=== PATIENT | female | born 1945 | race Caucasian/White ===

== ENCOUNTER 2017-05-25 09:10 | Outpatient (CLI) | payer MEDICARE | END 2017-05-25 09:11 | disposition home or self-care (01) | LOC: CP 09:10 | PROVIDERS: ATTEND Internal Medicine Critical Care Medicine | DX: J43.8 Other emphysema (principal); J44.9 Chronic obstructive pulmonary disease, unspecified | CPT/HCPCS: 94060; 94727; 94729 ==

== ENCOUNTER 2018-07-16 11:01 | Observation (INO) | payer MEDICARE ==
[2018-07-16 11:49] LABS: #Basophils 0.1 thou/uL (0.0-0.2); #Eosinphils 0.1 thou/uL (0.0-0.7); #Lymphocytes 0.8 thou/uL (1.20-3.40); %Basophils 1.5 % (0.0-1.0); %Eosinophils 0.7 % (0.0-10.0); %Lymphocytes 8.8 % (21.0-51.0); Hemoglobin 14.9 g/dL (12.0-16.0); Mean Corpuscular Hemoglobin 31.3 pg (27.0-31.0); Mean Corpuscular Volume 97.7 fL (78.0-98.0); Mean Platelet Volume 7.7 fL (7.4-10.4); Platelet Count 257 thou/uL (130-400); RBC Distribution Width 12.3 % (11.5-14.5); Red Blood Cell (RBC) Count 4.77 mill/uL (4.20-5.40)
[2018-07-16 12:01] LABS: ALT (SGPT) 31 U/L (8-55); AST (SGOT) 30 U/L (5-34); Alkaline Phosphatase 84 U/L (40-150); Anion Gap 13 mmol/L (10-20); BUN (Urea Nitrogen) 12 mg/dL (9.8-20.1); Bilirubin, Total 0.8 mg/dL (0.2-1.2); CK (CPK) 172 U/L (29-168); Calc. Creatinine Clearance 0 mL/min (70-130); Calcium 9.4 mg/dL (7.8-10.44); Carbon Dioxide 21 mmol/L (23-31); Chloride 100 mmol/L (98-107); Estimated GFR-MDRD 83; Globulin 2.6 g/dL (2.4-3.5); Glucose 86 mg/dL (83-110); Potassium 4.4 mmol/L (3.5-5.1); Protein, Total 6.6 g/dL (6.0-8.3); Sodium 130 mmol/L (136-145)
--- NOTE | 2018-07-16 12:50 | RAD ---
RADIOGRAPH CHEST 1 VIEW: HISTORY: A 73-year-old female with dyspnea. FINDINGS: There is hyperinflation of the lungs, consistent with COPD. There is no evidence of air space densit y, pneumothorax, or pulmonary edema. The lateral costophrenic angles are sharp. There is no cardiom egaly. There are 2 nodular densities projecting over the left lung bases, one on each side, on the o rder of approximately 1.5 to 2 cm each. They have irregular margins. They were present on recent st udy of 07/12/2018, but not on older studies of 07/14/2016 and 06/19/2016. Perhaps they represent nipple shadows, but this is uncertain. IMPRESSION: 1) No acute pulmonary findings. 2) Emphysema. 3) Nodular densities projecting over the lower lung zones, one on each side. Perhaps they represent nipple shadows. Recommend repeat frontal chest radiograph with nipple markers, with arms up, and the n with arms down. ahim [] POS: JOSE
[2018-07-16 17:02] LABS: Troponin I Less than 0.010 ng/mL (< 0.028)
[2018-07-16] MEDS ORDERED: Acetaminophen 325 MG TAB PO PRN (17:18)
[2018-07-16] MEDS ORDERED: Ondansetron ODT 4 MG TAB PO PRN (17:18)
[2018-07-16] MEDS ORDERED: Ondansetron PF 4 MG/2 ML Vial IVP PRN (17:18)
[2018-07-16 17:51] LABS: Sodium 138 mmol/L (136-145)
[2018-07-16 19:12] LABS: Troponin I Less than 0.010 ng/mL (< 0.028)
[2018-07-16 20:51] VITALS: BMI 18.9
[2018-07-16] MEDS ORDERED: Albuterol Sulfate 2.5 mg/3 ml Neb ONE (21:40)
[2018-07-16] MEDS ORDERED: PROVENTIL INHALER 6.7 G (200 INHALATIONS) INH PRN (21:51)
[2018-07-16] MEDS ORDERED: Albuterol Sulfate 1.25 MG/3 ML NEB NEB PRN (21:51)
[2018-07-16] MEDS ORDERED: Albuterol Sulfate 2.5 mg/3 ml Neb NEB SCH (22:00)
[2018-07-16] MEDS ORDERED: Apixaban 5 MG TAB PO SCH (22:15)
[2018-07-16] MEDS: Famotidine 20 MG TAB PO SCH (22:16)
[2018-07-16] MEDS: Dronedarone HCl 400 MG TAB PO SCH (22:16)
--- NOTE | 2018-07-17 00:37 | HP ---
PRIMARY CARE PHYSICIAN: Carolee Valdes MD CHIEF COMPLAINT: Shortness of breath and orthostatic hypotension. HISTORY OF PRESENT ILLNESS: Mrs. Morgan is a pleasant 73-year-old female with past medical history of hypothyroidism, COPD, osteoarthritis, and atrial fibrillation, currently on Eliquis. She reports to [facility] after feeling dizzy and short of breath upon standing along with exertion, she states that the symptoms have been going on on and off for the last 2 to 3 weeks. She reports that her primary care physician checked her thyroid levels and they were found to be low. Therefore, her dose of levothyroxine was increased from 100 mcg to 112 mcg about 3 weeks ago. She states shortly after that she became symptomatic and noticed symptoms had also progressed since that time. 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 She states she takes Multaq, Eliquis, levothyroxine, Dulera, Spiriva, and ProAir for her home medications. She states that when she notices symptoms, she has to catch herself and find a chair to sit down, she states after several moments symptoms usually improve. She also reports being quite thirsty throughout the day where she drinks about 74 ounces throughout the day. She also states that she has noticed an increased in urination as well. She currently denies any dizziness, headache, blurred vision, chest pain, shortness of breath, or abdominal pain. No nausea or vomiting. During her workup in the emergency department, she received DuoNeb nebulizer treatment due to shortness of breath along with 2 L of normal saline. She states that her symptoms had improved. She was brought in by EMS who had obtained orthostatic vital signs and she was found to be positive orthostatic. Her blood pressure in the emergency department was found to be low at 92/61. When she was seen and examined, she was sitting up in the bed with her family at bedside. She had no further complaints at that time. It is determined that she will be admitted under observation and further workup of her symptoms of orthostatic hypotension. REVIEW OF SYSTEMS: All other systems reviewed and are negative unless mentioned in the HPI. PAST MEDICAL HISTORY: Hypothyroidism, COPD, arthritis, atrial fibrillation. PAST SURGICAL HISTORY: None. PSYCHIATRIC HISTORY: None. SOCIAL HISTORY: The patient is a former smoker, however, quit in 2017, reports rarely drinking any alcohol in which she does it socially, 1 to 2 drinks roughly once a month. Denies any other drug use. FAMILY HISTORY: Noncontributory. KNOWN ALLERGIES: Codeine. CURRENT HOME MEDICATIONS: 1. ProAir 90 mcg 1 to 2 puffs as needed for shortness of breath. 2. Spiriva 18 mcg. 3. Dulera 200/5 mcg actuation. 4. Levothyroxine 112 mcg oral daily. 5. Eliquis 5 mg oral twice daily. 6. Multaq 400 mg b.i.d. 7. Pravastatin 20 mg oral daily. PHYSICAL EXAMINATION: VITAL SIGNS: BP 92/61, pulse 89, respirations 18, temp 98.6 degrees Fahrenheit, O2 saturations 91% on room air. GENERAL: The patient is awake, alert, and oriented x3. No acute distress noted. HEENT: Atraumatic, normocephalic. Pupils are round and reactive to light. Extraocular muscles intact. Moist mucous membranes noted. Oropharynx is clear without exudates or erythema. Uvula is midline. NECK: Soft, supple, and nontender. Trachea midline. No JVD noted. CARDIOVASCULAR: Positive S1 and S2. Regular rate and rhythm. No murmurs noted. RESPIRATORY: Clear to auscultation bilaterally. No wheezes. No rales. No rhonchi. ABDOMEN: Soft and nontender. Bowel sounds present. MUSCULOSKELETAL: Strength 5+ bilaterally upper and lower extremities. Moves all extremities equally. Pedal and radial pulses palpable. No edema noted. NEUROLOGIC: Cranial nerves II through XII intact. No focal deficits noted. Speech is intact. Hearing intact. Gait is not assessed. PSYCHIATRIC: Good mood and affect. LABORATORY DATA: WBC 9.0, RBC 4.77, hemoglobin 14.9, platelet 257. D-dimer 0.42. Sodium 130, potassium 4.4, anion gap 13, BUN 12, creatinine 0.69, estimated GFR 83, calcium 9.4. Creatine kinase 172. Troponin less than 0.010 x2. DIAGNOSTIC IMAGING: Chest x-ray showed no acute pulmonary findings. ASSESSMENT AND PLAN: 1. Orthostatic hypotension. The patient received 2 L of normal saline in the ER. We will recheck orthostatic vital signs. 2. Hyponatremia. The patient received 2 L of normal saline in the ER, hold off as far as any fluid at this time. We will recheck BMP and sodium level. Check serum and urine osmolarity. This could likely be due to patient's underlying hypothyroidism and/or dehydration. We will rule out syndrome of inappropriate antidiuretic hormone secretion. 3. History of chronic obstructive pulmonary disease. Continue on patient's home regimen, add as needed DuoNebs. 4. Shortness of breath. This can likely be secondary to above and the patient's underlying chronic obstructive pulmonary disease; however, we will obtain transthoracic echocardiogram to check cardiac status. She had recently had a cardiac stress test. However, she had denied any recent echocardiogram. Chest x-ray showed no acute findings. 5. History of atrial fibrillation. Continue on patient's home medications including home dose of Eliquis and Multaq. 6. Deep vein thrombosis and gastrointestinal prophylaxis. CODE STATUS: Full code. DISPOSITION: Pending patient's workup and clinical findings. Job ID: [id number]
[2018-07-17] MEDS: Ipratropium Bromide 2.5 ml Neb NEB SCH ×4 (00:39→18:17)
[2018-07-17] MEDS: Levothyroxine Sodium 112 MCG TAB PO SCH (05:13)
[2018-07-17] MEDS: Mometasone/Formoterol 120 PUFF INHALER INH SCH ×2 (06:59→18:37)
[2018-07-17 07:49] LABS: #Basophils 0.1 thou/uL (0.0-0.2); #Eosinphils 0.1 thou/uL (0.0-0.7); #Monocytes 0.8 thou/uL (0.11-0.59); #Neutrophils 3.8 thou/uL (1.40-6.50); %Basophils 1.1 % (0.0-1.0); %Eosinophils 0.9 % (0.0-10.0); %Lymphocytes 17.6 % (21.0-51.0); %Monocytes 13.8 % (0.0-10.0); %Neutrophils 66.7 % (42.0-75.0); Hemoglobin 13.2 g/dL (12.0-16.0); Mean Corpuscular HGB CONC 31.9 g/dL (32.0-36.0); Mean Corpuscular Hemoglobin 31.3 pg (27.0-31.0); Mean Corpuscular Volume 98.1 fL (78.0-98.0); Mean Platelet Volume 8.1 fL (7.4-10.4); Platelet Count 227 thou/uL (130-400); RBC Distribution Width 12.3 % (11.5-14.5); Red Blood Cell (RBC) Count 4.21 mill/uL (4.20-5.40); White Blood Cell (WBC) Count 5.7 thou/uL (4.8-10.8)
[2018-07-17 08:24] LABS: Anion Gap 10 mmol/L (10-20); BUN (Urea Nitrogen) 7 mg/dL (9.8-20.1); Calc. Creatinine Clearance 65 mL/min (70-130); Calcium 8.9 mg/dL (7.8-10.44); Carbon Dioxide 24 mmol/L (23-31); Chloride 105 mmol/L (98-107); Estimated GFR-MDRD Greater than 90; Glucose 79 mg/dL (83-110); Potassium 3.7 mmol/L (3.5-5.1); Sodium 135 mmol/L (136-145)
[2018-07-17] MEDS ORDERED: Enoxaparin Sodium 40 MG/0.4 ML SYRINGE SC SCH (09:00)
[2018-07-17] MEDS: Apixaban 5 MG TAB PO SCH ×2 (09:10→20:49)
[2018-07-17] MEDS: Famotidine 20 MG TAB PO SCH ×2 (09:10→20:49)
[2018-07-17] MEDS: Dronedarone HCl 400 MG TAB PO SCH ×2 (09:10→17:18)
--- NOTE | 2018-07-17 17:33 | PDOC.PN ---
- Subjective Encounter Start Date: 07/17/18 Encounter Start Time: 12:00 Subjective: Examined today, reports BARGER with walking today with PT -: Reports this has been getting worse -: Initially orthostatic in ED, which appears to be improved BP has remained on the lower side but does not change signficantly with position. - Objective Resuscitation Status - Order Detail: 07/16/18 17:18 Resuscitation Status Routine Co-Sign Provider: Resuscitation Status: FULL: Full Resuscitation Vital Signs & Weight: Vital Signs (12 hours) Temp Pulse Resp BP Pulse Ox 07/17/18 15:46 97.6 F 80 16 105/51 L 95 07/17/18 12:45 96 16 90 L 07/17/18 11:55 97.5 F L 81 20 101/53 L 97 07/17/18 07:38 97.5 F L 89 16 104/55 L 95 07/17/18 06:48 90 L 07/17/18 06:45 90 16 90 L Weight Admit Weight 51.71 kg Weight 51.71 kg I&O: 07/16/18 07/17/18 07/18/18 06:59 06:59 06:59 Intake Total 1360 Output Total 2075 Balance -715 Result Diagrams: 07/17/18 06:34 07/17/18 06:34 Phys Exam - Physical Examination HEENT: PERRLA, moist MMs Neck: no nodes Mild expiratory wheezes Cardiovascular: RRR Gastrointestinal: soft, non-tender Musculoskeletal: no edema, pulses present Neurological: non-focal, normal sensation Lymphatic: no nodes Psychiatric: normal affect, A&O x 3 Dx/Plan (1) COPD (chronic obstructive pulmonary disease) Status: Chronic (2) History of atrial fibrillation Code(s): Z86.79 - PERSONAL HISTORY OF OTHER DISEASES OF THE CIRCULATORY SYSTEM Status: Chronic (3) Orthostatic hypotension Code(s): I95.1 - ORTHOSTATIC HYPOTENSION Status: Resolved (4) Hypothyroid Code(s): E03.9 - HYPOTHYROIDISM, UNSPECIFIED Status: Chronic (5) Hyponatremia Code(s): E87.1 - HYPO-OSMOLALITY AND HYPONATREMIA Status: Resolved - Plan Echo and cardiology consult pending -: Added steroid for expiratory wheezes -: Sodium improved, BP with systolic in 90's and 100s, no significant change -: with position -: Will monitor Vitals/labs * .
--- NOTE | 2018-07-17 19:00 | CON ---
DATE OF CONSULTATION: REASON FOR CONSULTATION: Shortness of breath. HISTORY OF PRESENT ILLNESS: Ms. Morgan is a pleasant 73-year-old, who is a patient of Dr. Angela Lora. She has a history of COPD. She stopped all tobacco products in 2017. She did state for the last several weeks, she has had increased shortness of breath. She does state she also wheezes. No chest pain or pressure noted. She was last seen in the office in March of 2018. At that time, she did complain of chest pain. She underwent a noninvasive stress study and was found to have ischemia at the apex only. Normal LVEF with normal thickness and wall motion present. PAST MEDICAL HISTORY: COPD; arthritis; and atrial fibrillation, on anticoagulation therapy. HOME MEDICATIONS: Include; 1. ProAir. 2. Spiriva. 3. Dulera. 4. Eliquis. 5. Multaq. 6. Pravastatin. SOCIAL HISTORY: No current tobacco or alcohol use. ALLERGIES: CODEINE. REVIEW OF SYSTEMS: A 10-point review of systems is reviewed and as above, otherwise negative. PHYSICAL EXAMINATION: GENERAL: The patient is a pleasant female, who is in no acute distress. She does appear older than stated age and thin. VITAL SIGNS: Blood pressure 105/51, pulse 80, and temperature 97.8. NEUROLOGIC: The patient is alert and oriented x3 with no focal neurologic deficits. HEENT: Sclerae without icterus. Mouth has moist mucous membranes with normal pallor. NECK: No JVD. Carotid upstroke brisk. No bruits bilaterally. LUNGS: Clear to auscultation with unlabored respirations. BACK: No scoliosis or kyphosis. CARDIAC: Regular rate and rhythm with normal S1 and S2. No S3 or S4 noted. No significant rubs, murmurs, thrills, or gallops noted throughout the precordium. PMI is not displaced. There is no parasternal heave. ABDOMEN: Soft, nontender, nondistended. No peritoneal signs present. No hepatosplenomegaly. No abnormal striae. EXTREMITIES: 2+ femoral and 2+ dorsalis pedis pulses. No cyanosis, clubbing, or edema. SKIN: No gross abnormalities. PERTINENT LABORATORY DATA: Hemoglobin 13.2 and platelet count 227. Creatinine 0.61 and BUN 7. Troponin negative. IMPRESSION: 1. Shortness of breath. 2. Dizziness, lightheadedness. 3. Orthostatic hypotension. RECOMMENDATIONS: Parkinson's symptoms do not suggest angina. Her EKG did not show acute changes. Her troponin is negative. Her stress study performed in the office within the last year suggested ischemia in the apex, but had normal wall motion thickening and may also be due to apical thinning. This was felt to be a low risk scan. At this point, it is not consistent with the current symptoms. We will discuss with Dr. Leno Lee, who has not seen her. We will continue primary risk factor modification. Continue anticoagulation therapy. Job ID: [id number]
[2018-07-17] MEDS ORDERED: Pravastatin Sodium 20 MG TAB PO SCH (21:00)
[2018-07-18] MEDS: Ipratropium Bromide 2.5 ml Neb NEB SCH ×3 (00:30→13:53)
[2018-07-18 05:16] LABS: #Basophils 0.1 thou/uL (0.0-0.2); #Eosinphils 0.1 thou/uL (0.0-0.7); #Lymphocytes 1.2 thou/uL (1.20-3.40); #Monocytes 0.8 thou/uL (0.11-0.59); #Neutrophils 4.6 thou/uL (1.40-6.50); %Basophils 1.6 % (0.0-1.0); %Eosinophils 0.8 % (0.0-10.0); %Lymphocytes 17.1 % (21.0-51.0); %Monocytes 12.5 % (0.0-10.0); Hemoglobin 14.2 g/dL (12.0-16.0); Mean Corpuscular HGB CONC 33.8 g/dL (32.0-36.0); Mean Corpuscular Hemoglobin 32.9 pg (27.0-31.0); Mean Corpuscular Volume 97.5 fL (78.0-98.0); Mean Platelet Volume 7.9 fL (7.4-10.4); Platelet Count 246 thou/uL (130-400); RBC Distribution Width 12.1 % (11.5-14.5); Red Blood Cell (RBC) Count 4.33 mill/uL (4.20-5.40); White Blood Cell (WBC) Count 6.7 thou/uL (4.8-10.8)
[2018-07-18] MEDS: Levothyroxine Sodium 112 MCG TAB PO SCH (05:27)
[2018-07-18 05:37] LABS: Anion Gap 14 mmol/L (10-20); BUN (Urea Nitrogen) 6 mg/dL (9.8-20.1); Calc. Creatinine Clearance 58 mL/min (70-130); Calcium 9.2 mg/dL (7.8-10.44); Carbon Dioxide 23 mmol/L (23-31); Chloride 103 mmol/L (98-107); Estimated GFR-MDRD 84; Glucose 84 mg/dL (83-110); Potassium 3.9 mmol/L (3.5-5.1); Sodium 136 mmol/L (136-145)
[2018-07-18] MEDS: Mometasone/Formoterol 120 PUFF INHALER INH SCH (07:21)
[2018-07-18] MEDS: Famotidine 20 MG TAB PO SCH (09:00)
[2018-07-18] MEDS: Apixaban 5 MG TAB PO SCH (09:00)
[2018-07-18] MEDS: Dronedarone HCl 400 MG TAB PO SCH (09:00)
[2018-07-18 15:09] LABS: Free T4 (Free Thyroxine) 1.66 ng/dL (0.70-1.48); Thyroid Stimulating Hormone 4.4955 uIU/mL (0.35-4.94)
[2018-07-18 15:35] VITALS: BP 108/70; TEMP 97.8
== END 2018-07-18 16:46 | disposition home or self-care (01) ==
LOC: ERS 11:01 → ERHOLD 15:40 → 2SW 20:20
PROVIDERS: ADMIT Internal Medicine; ATTEND Internal Medicine
DX: I95.1 Orthostatic hypotension (principal); R06.02 Shortness of breath; E03.9 Hypothyroidism, unspecified; J44.9 Chronic obstructive pulmonary disease, unspecified; M81.0 Age-related osteoporosis without current pathological fracture; I48.91 Unspecified atrial fibrillation; M19.90 Unspecified osteoarthritis, unspecified site; E87.1 Hypo-osmolality and hyponatremia; Z87.891 Personal history of nicotine dependence; Z79.01 Long term (current) use of anticoagulants; Z79.899 Other long term (current) drug therapy
CPT/HCPCS: 71045; 80048 ×2; 80053; 82550; 83735; 83930 ×2; 83935; 84295; 84439; 84443; 84481; 84484 ×2; 85025 ×3; 85379; 93005; 93306; 94640 ×5; 96360; 96361; 97139 ×2; 99285; G0378 ×2; 36415; J2920; J7611; J7620

== ENCOUNTER 2022-07-13 10:28 | Outpatient (CLI) | payer MEDICARE | END 2022-07-13 10:29 | disposition home or self-care (01) | LOC: RAD 10:28 | PROVIDERS: ATTEND Internal Medicine Critical Care Medicine | DX: R06.00 Dyspnea, unspecified (principal) | CPT/HCPCS: 71046 ==

== ENCOUNTER 2023-12-29 10:42 | Inpatient (IN) | payer MEDICARE ==
[2023-12-29 13:09] LABS: Influenza A by NAA Not Detected (NotDetected); Influenza B by NAA Not Detected (NotDetected); SARS-CoV-2 NAA Rapid Test DETECTED (NotDetected)
[2023-12-29] MEDS ORDERED: Albuterol 2.5 MG (0.5 mL) NEB ONE (13:29)
[2023-12-29] MEDS ORDERED: Ipratropium/Albuterol 3 ML NEB ONE (13:29)
[2023-12-29] MEDS ORDERED: Dexamethasone 10 MG/ML VIAL ONE (13:29)
[2023-12-29] MEDS ORDERED: LevoFLOXacin 750 mg/D5W 150 ml Premix Bag ONE (13:30)
[2023-12-29] MEDS ORDERED: Magnesium 2 GM/50 ML BAG (IN WATER) ONE (13:30)
[2023-12-29 13:36] LABS: #Basophils 0.03 10x3/uL (0.0-0.2); %Basophils 0.2 % (0.0-1.0); %Eosinophils 0.3 % (0.0-10.0); %Lymphocytes 5.5 % (21.0-51.0); %Monocytes 8.8 % (0.0-10.0); %Neutrophils 84.5 % (42.0-75.0); Hematocrit 38.2 % (36.0-47.0); Hemoglobin 12.9 g/dL (12.0-16.0); Mean Corpuscular HGB CONC 33.8 g/dL (32.0-36.0); Mean Corpuscular Hemoglobin 32.6 pg (27.0-31.0); Mean Corpuscular Volume 96.5 fL (78.0-98.0); Mean Platelet Volume 9.1 fL (7.4-10.4); Platelet Count 352 10x3/uL (130-400); RBC Distribution Width 12.6 % (11.5-14.5); Red Blood Cell (RBC) Count 3.96 mill/uL (4.20-5.40)
[2023-12-29 13:56] LABS: ALT (SGPT) 20 U/L (8-55); AST (SGOT) 19 U/L (5-34); Albumin 2.9 g/dL (3.4-4.8); Anion Gap 14 mmol/L (10-20); BUN (Urea Nitrogen) 15 mg/dL (9.8-20.1); Calc. Creatinine Clearance 0 mL/min (70-130); Calcium 9.7 mg/dL (7.8-10.44); Carbon Dioxide 29 mmol/L (23-31); Chloride 93 mmol/L (98-107); Estimated GFR 91; Globulin 2.7 g/dL (2.4-3.5); Glucose 73 mg/dL (83-110); Potassium 2.9 mmol/L (3.5-5.1); Protein, Total 5.6 g/dL (5.8-8.1); Sodium 133 mmol/L (136-145)
[2023-12-29 13:59] LABS: Troponin I 0.013 ng/mL (< 0.028)
[2023-12-29 14:29] LABS: Alkaline Phosphatase 84 U/L (40-110); Bilirubin, Total 0.9 mg/dL (0.2-1.2); Lipase 8 U/L (8-78)
[2023-12-29] MEDS ORDERED: Potassium Chloride 20 MEQ TAB ONE (15:58)
[2023-12-29 17:08] VITALS: BMI 15.1
[2023-12-29] MEDS: Ipratropium/Albuterol 3 ML NEB NEB SCH (18:35)
[2023-12-29] MEDS: Mometasone 200 MCG/Formoterol 5 MCG 120 PUFF INHALER INH SCH (18:37)
[2023-12-29] MEDS: Dronedarone HCl 400 MG TAB PO SCH (18:42)
[2023-12-29] MEDS: Apixaban 2.5 MG TAB PO SCH (22:05)
[2023-12-29 22:18] LABS: Magnesium 2.3 mg/dL (1.6-2.6); Potassium 3.4 mmol/L (3.5-5.1)
[2023-12-30 04:47] LABS: Anion Gap 10 mmol/L (10-20); BUN (Urea Nitrogen) 12 mg/dL (9.8-20.1); Calc. Creatinine Clearance 46 mL/min (70-130); Calcium 8.9 mg/dL (7.8-10.44); Carbon Dioxide 31 mmol/L (23-31); Chloride 97 mmol/L (98-107); Estimated GFR 90; Glucose 112 mg/dL (83-110); Potassium 3.5 mmol/L (3.5-5.1); Sodium 134 mmol/L (136-145)
[2023-12-30 04:59] LABS: #Basophils Less than 0.03 10x3/uL (0.0-0.2); #Eosinphils Less than 0.03 10x3/uL (0.0-0.7); %Basophils 0.2 % (0.0-1.0); %Monocytes 6.8 % (0.0-10.0); %Neutrophils 89.2 % (42.0-75.0); Hematocrit 36.9 % (36.0-47.0); Hemoglobin 12.6 g/dL (12.0-16.0); Mean Corpuscular HGB CONC 34.1 g/dL (32.0-36.0); Mean Corpuscular Hemoglobin 32.4 pg (27.0-31.0); Mean Corpuscular Volume 94.9 fL (78.0-98.0); Mean Platelet Volume 9.3 fL (7.4-10.4); Platelet Count 356 10x3/uL (130-400); RBC Distribution Width 12.7 % (11.5-14.5); Red Blood Cell (RBC) Count 3.89 mill/uL (4.20-5.40)
[2023-12-30] MEDS: Levothyroxine Sodium 125 MCG TAB PO SCH (05:39)
[2023-12-30] MEDS: Budesonide 0.5 MG/2 ML NEB INH SCH (07:03)
[2023-12-30 07:19] VITALS: BMI 15.3
[2023-12-30] MEDS: Digoxin 0.125 MG TAB PO SCH (08:29)
[2023-12-30] MEDS: Bumetanide 1 MG TAB PO SCH (08:29)
[2023-12-30] MEDS: predniSONE 20 MG TAB PO SCH (08:29)
[2023-12-30] MEDS: Potassium Chloride 20 MEQ TAB PO SCH (08:29)
[2023-12-30] MEDS ORDERED: Non-Formulary Item 1 EACH (Tiotropium [Spiriva Handihaler] 18 MCG Box) INH SCH (09:00)
[2023-12-30] MEDS: Acetaminophen 325 MG TAB PO PRN (20:53)
[2023-12-30] MEDS: ALPRAZolam 0.25 MG TAB PO PRN (20:53)
[2023-12-30] MEDS: NIRMATRELVIR PO SCH (21:59)
[2023-12-30] MEDS: RITONAVIR 100 MG PO SCH (21:59)
[2023-12-30] MEDS: [UNRECOGNIZED DRUG - OTHER] PO SCH (21:59)
[2023-12-31 05:15] LABS: #Basophils Less than 0.03 10x3/uL (0.0-0.2); #Eosinphils Less than 0.03 10x3/uL (0.0-0.7); %Basophils 0.1 % (0.0-1.0); %Eosinophils 0.1 % (0.0-10.0); %Lymphocytes 4.3 % (21.0-51.0); %Monocytes 9.9 % (0.0-10.0); %Neutrophils 84.9 % (42.0-75.0); Hematocrit 36.9 % (36.0-47.0); Hemoglobin 12.3 g/dL (12.0-16.0); Mean Corpuscular HGB CONC 33.3 g/dL (32.0-36.0); Mean Corpuscular Hemoglobin 32.5 pg (27.0-31.0); Mean Corpuscular Volume 97.6 fL (78.0-98.0); Mean Platelet Volume 9.4 fL (7.4-10.4); Platelet Count 369 10x3/uL (130-400); RBC Distribution Width 13.2 % (11.5-14.5); Red Blood Cell (RBC) Count 3.78 mill/uL (4.20-5.40)
[2023-12-31 05:51] LABS: Anion Gap 11 mmol/L (10-20); BUN (Urea Nitrogen) 16 mg/dL (9.8-20.1); Calc. Creatinine Clearance 45 mL/min (70-130); Calcium 9.2 mg/dL (7.8-10.44); Carbon Dioxide 32 mmol/L (23-31); Chloride 98 mmol/L (98-107); Estimated GFR 89; Glucose 84 mg/dL (83-110); Potassium 3.6 mmol/L (3.5-5.1); Sodium 137 mmol/L (136-145)
[2024-01-01 05:21] LABS: #Basophils Less than 0.03 10x3/uL (0.0-0.2); #Eosinphils Less than 0.03 10x3/uL (0.0-0.7); %Basophils 0.1 % (0.0-1.0); %Lymphocytes 2.7 % (21.0-51.0); %Monocytes 8.5 % (0.0-10.0); Hematocrit 37.8 % (36.0-47.0); Hemoglobin 12.5 g/dL (12.0-16.0); Mean Corpuscular HGB CONC 33.1 g/dL (32.0-36.0); Mean Corpuscular Hemoglobin 31.6 pg (27.0-31.0); Mean Corpuscular Volume 95.5 fL (78.0-98.0); Mean Platelet Volume 9.5 fL (7.4-10.4); Platelet Count 382 10x3/uL (130-400); RBC Distribution Width 13.1 % (11.5-14.5); Red Blood Cell (RBC) Count 3.96 mill/uL (4.20-5.40)
[2024-01-01 05:41] LABS: Anion Gap 12 mmol/L (10-20); BUN (Urea Nitrogen) 21 mg/dL (9.8-20.1); Calc. Creatinine Clearance 43 mL/min (70-130); Carbon Dioxide 36 mmol/L (23-31); Chloride 93 mmol/L (98-107); Estimated GFR 88; Glucose 102 mg/dL (83-110); Potassium 4.1 mmol/L (3.5-5.1); Sodium 137 mmol/L (136-145)
[2024-01-01] MEDS: Budesonide 0.5 MG/2 ML NEB INH SCH (07:39)
[2024-01-01 12:13] LABS: Digoxin 1.24 ng/mL (0.8-2.0)
[2024-01-02 04:33] LABS: #Basophils Less than 0.03 10x3/uL (0.0-0.2); #Eosinphils Less than 0.03 10x3/uL (0.0-0.7); %Eosinophils 0.1 % (0.0-10.0); %Lymphocytes 2.4 % (21.0-51.0); %Monocytes 8.9 % (0.0-10.0); Hemoglobin 11.7 g/dL (12.0-16.0); Mean Corpuscular HGB CONC 33.4 g/dL (32.0-36.0); Mean Corpuscular Hemoglobin 32.7 pg (27.0-31.0); Mean Corpuscular Volume 97.8 fL (78.0-98.0); Mean Platelet Volume 9.6 fL (7.4-10.4); Platelet Count 349 10x3/uL (130-400); RBC Distribution Width 13.2 % (11.5-14.5); Red Blood Cell (RBC) Count 3.58 mill/uL (4.20-5.40)
[2024-01-02 05:15] LABS: Anion Gap 10 mmol/L (10-20); BUN (Urea Nitrogen) 18 mg/dL (9.8-20.1); Calc. Creatinine Clearance 45 mL/min (70-130); Calcium 9.7 mg/dL (7.8-10.44); Carbon Dioxide 35 mmol/L (23-31); Chloride 92 mmol/L (98-107); Estimated GFR 89; Glucose 112 mg/dL (83-110); Potassium 3.9 mmol/L (3.5-5.1); Sodium 133 mmol/L (136-145)
[2024-01-02] MEDS ORDERED: Ipratropium/Albuterol 3 ML NEB NEB PRN (13:10)
[2024-01-02] MEDS: Polyethylene Glycol 3350 17 GM Packet PO SCH (13:42)
[2024-01-03 04:26] LABS: #Basophils Less than 0.03 10x3/uL (0.0-0.2); #Eosinphils Less than 0.03 10x3/uL (0.0-0.7); %Basophils 0.1 % (0.0-1.0); %Lymphocytes 2.9 % (21.0-51.0); %Monocytes 8.5 % (0.0-10.0); Hematocrit 34.8 % (36.0-47.0); Hemoglobin 11.8 g/dL (12.0-16.0); Mean Corpuscular HGB CONC 33.9 g/dL (32.0-36.0); Mean Corpuscular Hemoglobin 31.6 pg (27.0-31.0); Mean Corpuscular Volume 93.3 fL (78.0-98.0); Mean Platelet Volume 9.5 fL (7.4-10.4); Platelet Count 334 10x3/uL (130-400); RBC Distribution Width 13.2 % (11.5-14.5); Red Blood Cell (RBC) Count 3.73 mill/uL (4.20-5.40)
[2024-01-03 06:38] LABS: Anion Gap 14 mmol/L (10-20); BUN (Urea Nitrogen) 19 mg/dL (9.8-20.1); Calc. Creatinine Clearance 43 mL/min (70-130); Calcium 8.9 mg/dL (7.8-10.44); Carbon Dioxide 33 mmol/L (23-31); Chloride 96 mmol/L (98-107); Estimated GFR 88; Glucose 84 mg/dL (83-110); Potassium 3.9 mmol/L (3.5-5.1); Sodium 139 mmol/L (136-145)
[2024-01-03] MEDS: Senokot 8.6 MG TAB PO SCH (09:28)
[2024-01-03] MEDS: Potassium Chloride 20 MEQ TAB PO SCH (09:28)
[2024-01-03 12:07] VITALS: BP 101/53; TEMP 97.9
== END 2024-01-03 15:45 | DRG 177 ==
LOC: ERS 10:42 → 2NO 16:24
PROVIDERS: ADMIT Internal Medicine; ATTEND Internal Medicine
PROC: 3E0333Z Introduction of Anti-inflammatory into Peripheral Vein, Percutaneous Approach (ICD-10-PCS; principal; 2023-12-29)
PROC: XW0DXF5 Introduction of Other New Technology Therapeutic Substance into Mouth and Pharynx, External Approach, New Technology Group 5 (ICD-10-PCS; 2023-12-30)
DX: U07.1 COVID-19 (principal); J12.82 Pneumonia due to coronavirus disease 2019; J96.21 Acute and chronic respiratory failure with hypoxia; J44.1 Chronic obstructive pulmonary disease with (acute) exacerbation; J44.0 Chronic obstructive pulmonary disease with (acute) lower respiratory infection; I48.92 Unspecified atrial flutter; E87.1 Hypo-osmolality and hyponatremia; I48.0 Paroxysmal atrial fibrillation; E03.9 Hypothyroidism, unspecified; Z99.81 Dependence on supplemental oxygen; Z88.5 Allergy status to narcotic agent; Z79.51 Long term (current) use of inhaled steroids; Z79.899 Other long term (current) drug therapy; Z79.890 Hormone replacement therapy; E87.6 Hypokalemia; Z66 Do not resuscitate
CPT/HCPCS: 36415; 71046; 80048; 80053; 80162; 83605; 83690; 83735; 83880; 84145; 84484; 85025; 87040; 93005; 93010; 94640; J1100; J1956; J3475; J7512; J7611; J7620; J7626; J8499